=== PATIENT | male | born 1980 | race Caucasian/White ===

== ENCOUNTER → 2018-08-31 | Outpatient (CLI) | payer BC ==
--- NOTE | 2018-08-31 10:40 | Diagnostic Imaging Report ---
Abdomen, three views dated 08/31/2018. History: Renal stone. Findings: The intestinal gas pattern is nonobstructive. There no masses. No calcifications overlying the kidneys. Left pelvic calcification likely is a phlebolith. There is an indeterminate calcifications in the right side of the pelvis measuring 8 mm in size. The osseous structures are intact. IMPRESSION: Indeterminant right pelvic calcification. Signed by: Dr. Jamey Velásquez DO on 08/31/2018 10:37 AM
== END ==
LOC: RAD 09:53
PROVIDERS: ATTEND Urology
DX: N20.0 Calculus of kidney (principal)
CPT/HCPCS: 74018

== ENCOUNTER → 2018-09-23 | Day surgery (SDC) | payer BC ==
[2018-09-16 10:15] LABS: BASOPHILS # (AUTO) 0.1 (0.0-0.1); BASOPHILS % 1.1 % (0.0-1.0); EOSINOPHILS # (AUTO) 0.2 (0.0-0.4); EOSINOPHILS % 3.2 % (0.0-6.0); HEMATOCRIT 44.4 % (38.2-49.6); HEMOGLOBIN 15.1 g/dL (14.0-18.0); LYMPHOCYTES # (AUTO) 1.7 (1.0-3.2); LYMPHOCYTES % 31.6 % (18.0-39.1); MEAN CORPUSCULAR HEMOGLOBIN 28.4 pg (28-32); MEAN CORPUSCULAR VOLUME 83.6 fL (81-99); MONOCYTES # (AUTO) 0.4 (0.2-0.8); MONOCYTES % 6.6 % (4.4-11.3); NEUTROPHILS % 56.9 % (38.7-80.0); PLATELET COUNT 314 x10e3/uL (140-360); RED BLOOD COUNT 5.31 x10e6/uL (4.3-5.7); RED CELL DISTRIBUTION WIDTH 13.1 % (11.7-14.4)
[2018-09-16 10:31] LABS: ANION GAP 9.9 mmol/L (8-16); BLOOD UREA NITROGEN 20 mg/dL (7-26); BUN/CREATININE RATIO 21 (6-25); CALCIUM 9.6 mg/dL (8.4-10.2); CARBON DIOXIDE 26 mmol/L (22-29); CHLORIDE 105 mmol/L (98-107); CREATININE, SERUM 0.94 mg/dL (0.72-1.25); EST GLOMERULAR FILTRATION RATE > 60 ML/MIN (60-); GLUCOSE 117 mg/dL (74-118); POTASSIUM 3.9 mmol/L (3.5-5.1); SODIUM 137 mmol/L (136-145)
[~2018-09-23] MED LIST: CEFTRIAXONE SOD 1 GM/NS 50 ML 50 ML IV ONE; DEXAMETHASONE SOD PHOS INJ 4 MG/ML VIAL ONE; DICYCLOMINE HCL20 MG PO; FAMOTIDINE20 MG PO; FENTANYL CITRATE/PF 100MCG/2 ML INJ ONE; IOPAMIDOL 300MG/ML 50ML INFUS..BTL IV ONE; LIDOCAINE HCL 2% LOCAL INJ 5 ML SDV VIAL INJ ONE; LOSARTAN-HCTZ1 EACH PO; MIDAZOLAM HCL 2 MG/2 ML VIAL ONE; MULTI-VITAMIN1 EACH PO; ONDANSETRON HCL INJ 2MG/ML 2ML 2 MG/ML VIAL ONE; PROPOFOL IV EMULSION 10 MG/ML 20 ML VIAL ONE; SEVOFLURANE INHAL SOLN 250 ML PEN BTL ONE; SIMVASTATIN40 MG PO
--- OUTSIDE RECORDS SUMMARY | 2018-09-23 06:52 | XMS REPORT | Summary of Care ---
Author Author Cheri Breen LVN Organization Unknown Address [facility] Phone Unavailable Care Team Providers Care Planner Name Role Phone ANDREW PADILLA N.P. 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, 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) Status: Active Abdominal bloating (787.3, R14.0) Status: Active Fatty liver (571.8, K76.0) Status: Active Heartburn (787.1, R12) Status: Active Lower back pain (724.2, M54.5) Status: Active BMI 40.0-44.9, adult (V85.41, Z68.41) Status: Active Tingling in extremities (782.0, R20.2) Status: Active Plantar fasciitis (728.71, M72.2) Status: Active Snoring (786.09, R06.83) Status: Active Need for influenza vaccination (V04.81, Z23) Status: Active GERD without esophagitis (530.81, K21.9) Status: Active Diffuse abdominal pain (789.00, R10.84) Status: Active Need for Tdap vaccination (V06.1, Z23) Status: Active Refused influenza vaccine (V64.06, Z28.21) Status: Active Essential (primary) hypertension (401.9, I10) Status: Active Elevated LFTs (790.6, R94.5) Status: Active Hyperlipidemia (272.4, E78.5) Status: Active Medications Name Dates Details Simvastatin 40 MG Oral Tablet TAKE 1 TABLET DAILY IN THE EVENING. Quantity: 90 PADILLA N.P., ANDREW * Start : 09-Nov-2013 Active Famotidine 20 MG Oral Tablet TAKE 1 TABLET TWICE DAILY * Quantity: 60 Refills: 2 PADILLA N.P., ANDREW * Start : 16-Sep-2016 Active Dicyclomine HCl - 20 MG Oral Tablet TAKE 1 TABLET BY MOUTH THREE TIMES DAILY * Quantity: 90 Refills: 2 PADILLA N.P., ANDREW * Start : 30-Oct-2016 Active Mens Multi Vitamin & Mineral Oral Tablet * Refills: 0 Active Losartan Potassium-HCTZ 50-12.5 MG Oral Tablet TAKE 1 TABLET DAILY * Quantity: 90 Refills: 1 PADILLA N.P., ANDREW * Start : 03-Feb-2018 Active Allergies and Adverse Reactions Name Dates Details No Known Allergies (Allergy) Status: Active Past Medical History Name Dates Details History of abdominal pain (V13.89, Z87.898) Status: Resolved History of allergic rhinitis (V12.69, Z87.09) Status: Resolved History of Arthralgia (719.40, M25.50) Status: Resolved History of essential hypertension (V12.59, Z86.79) Status: Resolved History of gastritis (V12.79, Z87.19) Status: Resolved History of hyperlipidemia (V12.29, Z86.39) Status: Resolved History of low back pain (V13.59, Z87.39) Status: Resolved History of sciatica (V12.49, Z86.69) Status: Resolved History of syncope (V15.89, Z87.898) Status: Resolved Procedures Procedure Dates Details History of Foot Surgery Completed History of Complete Colonoscopy Completed Immunization Name Dates Details Tdap (Boostrix) Lot #: [id number] on: 24-Aug-2018 Family History Name Dates Details Family history of Hypertension (V17.49) Status: Active Family history of Stroke Syndrome (V17.1) Status: Active Social History Name Dates Details - Status: Name Dates Details Former smoker Vital Signs Date Test Result Details 24-Aug-20187:50 BP Systolic 125 mm[Hg] Status: Comments: Location: LUE; Position: Sitting BP Diastolic 84 mm[Hg] Status: Comments: Location: LUE; Position: Sitting Height 70 in Status: Weight 301.25 lb Status: Body Mass Index Calculated 43.23 kg/m2 Status: Body Surface Area Calculated 2.48 m2 Status: Temperature 97.8 f Status: Comments: Method: Temporal Heart Rate 84 /min Status: Respiration Rate 16 /min Status: Physical Findings 0 Status: Comments: Alcohol Screen - How many times in the past yr have you had 5 (for M) or 4 (for F) or 4 (for all > 65yrs) or more drinks in a day? Results Date Description Value Details :06 [] LIPID PANEL WITH REFLEX TO DIRECT LDL CHOLESTEROL, TOTAL 153 mg/dl (Normal) Range: <200 HDL CHOLESTEROL 54 mg/dl (Normal) Range: >40 TRIGLYCERIDES 104 mg/dl (Normal) Range: <150 LDL-CHOLESTEROL 80 {MG/DL__CAL} (Normal) Comments: Reference range: <100 Desirable range <100 mg/dL for primary prevention; <70 mg/dL for patients with CHD or diabetic patients with > or=2 CHD risk factors. LDL-C is now calculated using edil Hernandez calculation, which is a validated novel method providing better accuracy than the Friedewald equation in the estimation of LDL-C. Miguel SS et al. CORA. 2013;310(19): 5970-6394 (http:/ /education.[employer].com/faq/JCO238) CHOL/HDLC RATIO 2.8 {CALC} (Normal) Range: <5.0 NON HDL CHOLESTEROL 99 {MG/DL__CAL} (Normal) Range: <130 Comments: For patients with diabetes plus 1 major ASCVD risk factor, treating to a non-HDL-C goal of <100 mg/dL (LDL-C of <70 mg/dL) is considered a therapeutic option. :06 [[facility]] CMP W/EGFR GLUCOSE 92 mg/dl (Normal) Range: 65-99 Comments: Fasting reference interval UREA NITROGEN (BUN) 17 mg/dl (Normal) Range: 7-25 CREATININE 0.97 mg/dl (Normal) Range: 0.60-1.35 eGFR NON- 97 {ML/MIN/1.7} (Normal) Range: > OR=60 eGFR 113 {ML/MIN/1.7} (Normal) Range: > OR=60 BUN/CREATININE RATIO NOT APPLICABLE {CALC} Range: 6-22 SODIUM 139 mmol/L (Normal) Range: 135-146 POTASSIUM 4.1 mmol/L (Normal) Range: 3.5-5.3 CHLORIDE 103 mmol/L (Normal) Range: 98-110 CARBON DIOXIDE 28 mmol/L (Normal) Range: 20-32 CALCIUM 9.7 mg/dl (Normal) Range: 8.6-10.3 PROTEIN, TOTAL 7.1 g/dl (Normal) Range: 6.1-8.1 ALBUMIN 4.3 g/dl (Normal) Range: 3.6-5.1 GLOBULIN 2.8 {G/DL__CALC} (Normal) Range: 1.9-3.7 ALBUMIN/GLOBULIN RATIO 1.5 {CALC} (Normal) Range: 1.0-2.5 BILIRUBIN, TOTAL 0.5 mg/dl (Normal) Range: 0.2-1.2 ALKALINE PHSPHATASE 71 u/l (Normal) Range: 40-115 AST 24 u/l (Normal) Range: 10-40 ALT 60 u/l (Above high threshold) Range: 9-46 24-Aug-20189:06 [[facility]] CBC (INCLUDES DIFF/PLT) WHITE BLOOD CELL COUNT 4.6 {Thousand/u} (Normal) Range: 3.8-10.8 RED BLOOD CELL COUNT 5.42 {Million/uL} (Normal) Range: 4.20-5.80 HEMAGLOBIN 15.3 g/dl (Normal) Range: 13.2-17.1 HEMATOCRIT 46.3 % (Normal) Range: 38.5-50.0 MCV 85.4 fL (Normal) Range: 80.0-100.0 MCH 28.2 pg (Normal) Range: 27.0-33.0 MCHC 33.0 g/dl (Normal) Range: 32.0-36.0 RDW 13.2 % (Normal) Range: 11.0-15.0 PLATELET COUNT 319 {Thousand/u} (Normal) Range: 140-400 MPV 9.3 fL (Normal) Range: 7.5-12.5 ABSOLUTE NEUTROPHILS 2746 {cells/uL} (Normal) Range: 3401-3694 ABSOLUTE LYMPHOCYTES 1233 {cells/uL} (Normal) Range: 850-3900 ABSOLUTE MONOCYTES 460 {cells/uL} (Normal) Range: 200-950 ABSOLUTE EOSINOPHILS 110 {cells/uL} (Normal) Range: 15-500 ABSOLUTE BASOPHILS 51 {cells/uL} (Normal) Range: 0-200 NEUTROPHILS 59.7 % (Normal) LYMPHOCYTES 26.8 % (Normal) MONOCYTES 10.0 % (Normal) EOSINOPHILS 2.4 % (Normal) BASOPHILS 1.1 % (Normal) 24-Aug-20189:06 [[facility]] TSH, 3RD GENERATION W/REFLEX TO FT4 Comments: REPORT COMMENT:FASTING:YES TSH, 3RD GENERATION W/REFLEX TO FT4 1.67 {MIU/L} (Normal) Range: 0.40-4.50 24-Aug-20187:45 Tobacco Use Screening Completed DONE Plan of Care Name Dates Details Planned Observations Planned Goals not documented Instructions Name Dates Details Instructions not documented Encounters Appointment; ANDREW PADILLA NP Encounter Diagnosis: Problem not documented On: 16-Sep-2016 13:00 Appointment; NADREW PADILLA NP Encounter Diagnosis: Problem not documented On: 30-Sep-2016 8:00 Appointment; NIDIA HIGH M.D. Encounter Diagnosis: Problem not documented On: 02-Oct-2016 13:30 Appointment; ALICE KUMARI M.D. Encounter Diagnosis: Problem not documented On: 21-Oct-2016 15:45 Appointment; ANDREW PADILLA NP Encounter Diagnosis: Problem not documented On: 13-Feb-2017 7:30 Appointment; ANDREW PADILLA NP Encounter Diagnosis: Problem not documented On: 18-Aug-2017 8:00 Appointment; ANDREW PADILLA NP Encounter Diagnosis: Problem not documented On: 03-Feb-2018 14:45 Appointment; ANDREW PADILLA NP Encounter Diagnosis: Problem not documented On: 18-Feb-2018 8:00 Appointment; ANDREW PADILLA NP Encounter Diagnosis: Problem not documented On: 24-Aug-2018 7:45
--- OUTSIDE RECORDS SUMMARY | 2018-09-23 06:52 | XMS REPORT ---
[facility] Address Unknown Phone Unavailable Care Team Providers Care Attending Anesthesiologist Name Role Phone Ric ARMENTA Unavailable Unavailable Problems This patient has no known problems. Allergies, Adverse Reactions, Alerts This patient has no known allergies or adverse reactions. Medications This patient has no known medications. Results Test Description Test Time Test Comments Text Results Atomic Results Result Comments ABDOMEN-1VIEW (KUB) 2018-08-31 10:34:00 [place] [id number] Patient Name: CARIDAD MARINO MR #: [id number] : 1980 Age/Sex: 38/M Req #: [id number] Adm Physician: Ordered by: MICHELLE ARMENTA MD Report #: [id number] Location: [facility] Room/Bed: Procedure: [id number] DX/ABDOMEN-1VIEW (KUB) Exam Date: 08/31/18 Exam Time: 1000 REPORT STATUS: Signed Abdomen, three views dated 08/31/2018. History: Renal stone. Findings: The intestinal gas pattern is nonobstructive. There no masses. No calcifications overlying the kidneys. Left pelvic calcification likely is a phlebolith. There is an indeterminate calcifications in the right side of the pelvis measuring 8 mm in size. The osseous structures are intact. IMPRESSION: Indeterminant right pelvic calcification. Signed by: Dr. Jaison Velásquez DO on 08/31/2018 10:37 AM Dictated By: JAISON VELÁSQUEZ DO 1037 Transcribed By: PB on 08/31/18 1037 COPY TO: MICHELLE ARMENTA MD
[2018-09-23 10:30] VITALS: BP 114/71
--- NOTE | 2018-10-10 11:39 | Operative Report ---
DATE OF PROCEDURE: 09/23/2018 SURGEON: Zackary Cardoza MD PREOPERATIVE DIAGNOSIS: Left distal ureteral stone. POSTOPERATIVE DIAGNOSIS: Left distal ureteral stone. No stone seen. OPERATIVE PROCEDURE PERFORMED: 1. Cystoscopy. 2. Left retrograde pyelogram. 3. Left ureteroscopy. 4. Placement of left ureteral stent. ANESTHESIA: General anesthesia. ESTIMATED BLOOD LOSS: Minimal. INDICATIONS: Mr. Shayy Anthony is a 38-year-old man with a history of recurrent left flank pain, nausea, and vomiting, who was found initially to have a 4-5 mm stone in the left distal ureter. Recent KUB revealed the stone still in a similar position. He now presents for definitive surgical management of his problem. PROCEDURE IN DETAIL: The patient was brought into the operating room, placed in supine position and after administration of general anesthesia was placed in dorsal lithotomy position and prepped and draped in usual sterile fashion. Cystourethroscopy was performed using 21-Iraqi cystoscope. The anterior and posterior urethra were noted to be normal. The prostate was normal in size, shape, and configuration. The bladder was entered without difficulty. Upon entrance into the bladder, the ureteral orifices were in their normal anatomical position. There were no mucosal lesions identified. Using a 5-Iraqi open-ended catheter, a left retrograde pyelogram was performed. This revealed mild dilation of the proximal and mid ureter without any obvious calcification. Previous calcification seen was noted by retrograde to the outside of the ureter. Given the mild dilation, decision was made to proceed with ureteroscopy. A wire was placed under fluoroscopic guidance up into the left renal pelvis and the distal left ureter was dilated. Rigid ureteroscopy was then performed. There was mild edema noted in the distal ureter as the stone had recently been passed. There were, however, no mucosal lesions, calcifications or evidence of obstruction seen in any other remaining aspects of the ureter up to the ureteropelvic junction. Given the use of rigid ureteroscopy, the renal pelvis was not explored. However, the retrograde pyelogram did not reveal any filling defects in this area. A 6-Iraqi double-pigtail stent was then placed such that one coil was within the renal pelvis and the subsequent coil was in the bladder. The string was allowed to exit the urethral meatus. The bladder was then drained in its entirety and the cystoscope and the sheath were removed. The patient was returned to supine position and anesthesia was reversed. He was transferred to a bed and taken to the postanesthesia care unit in good condition. Of note, the needle and instrument count were correct at the conclusion of the case. MD STORMY Sprague/SILAS /[id number]
== END | disposition home or self-care (01) ==
LOC: OR 06:51
PROVIDERS: ATTEND Urology
DX: N20.1 Calculus of ureter (principal); I10 Essential (primary) hypertension; K21.9 Gastro-esophageal reflux disease without esophagitis; Z01.810 Encounter for preprocedural cardiovascular examination; Z01.812 Encounter for preprocedural laboratory examination; Z68.41 Body mass index [BMI] 40.0-44.9, adult; Z84.1 Family history of disorders of kidney and ureter
CPT/HCPCS: 36415; 52332; 52351; 74420; 80048; 85025; 93005; C1758; C2617; J0696; J1100; J2001; J2250; J2405; J2704; Q9967